=== PATIENT | male | born 1995 | race Caucasian/White ===

== ENCOUNTER 2017-05-21 18:47 | Emergency (ER) | payer MEDICAID ==
[~2017-05-21] VITALS: Ht 149.9 cm; Wt 67.5 kg
[2017-05-21 19:08] VITALS: Ht 149.9 cm; Wt 67.5 kg
[2017-05-21] MEDS ORDERED: ACETAMINOPHEN 500 MG TAB PO STA (20:37)
[2017-05-21] MEDS ORDERED: ONDANSETRON (ODT) 4 MG TAB ODT STA (20:37)
[2017-05-21 21:29] VITALS: TEMP 99.4
[2017-05-21] MEDS ORDERED: TYL500 PO (22:40)
[2017-05-21] MEDS ORDERED: IBUP-1542 PO (22:41)
[2017-05-21] MEDS ORDERED: ONDA-43 PO (22:41)
--- NOTE | 2017-05-21 23:05 | ERD ---
ER Documentation Chief Complaint Date/Time DATE: 05/21/17 TIME: 23:02 Chief Complaint fever, body ache, n/v x 3 days HPI This is a 30-year-old male presents to the ER with fever, body aches, sore throat, headache, nausea, nonbilious nonbloody vomiting. Patient denies any diarrhea. He denies any shortness of breath or chest pain. He denies a cough. Patient denies any sick contacts at home. ROS 12 point review of systems was done, all negative except per HPI. Medications Home Meds Active Scripts Ibuprofen* (Motrin*) 600 Mg Tab, 600 MG PO Q6, #30 TAB Prov:CLINTON WIGGINS 05/21/17 Ondansetron Hcl* (Zofran*) 4 Mg Tab, 4 MG PO Q4H Y for NAUSEA AND OR VOMITING for 3 Days, TAB Prov:CLINTON WIGGINS 05/21/17 Acetaminophen* (Tylenol*) 500 Mg Tab, 500 MG PO Q4H Y for MILD PAIN LEVEL 1-3 for 3 Days, TAB Prov:CLINTON WIGGINS 05/21/17 PMhx/Soc Medical and Surgical Hx: pt denies Medical Hx, pt denies Surgical Hx History of Surgery: No Anesthesia Reaction: No Hx Neurological Disorder: No Hx Respiratory Disorders: No Hx Cardiac Disorders: No Hx Psychiatric Problems: No Hx Miscellaneous Medical Probl: No Hx Alcohol Use: No Hx Substance Use: No Hx Tobacco Use: No Smoking Status: Never smoker Physical Exam Vitals Vital Signs Date Time Temp Pulse Resp B/P Pulse Ox O2 Delivery O2 Flow Rate FiO2 05/21/17 21:29 99.4 05/21/17 19:08 102.1 103 20 137/66 99 Physical Exam GENERAL: The patient is well-developed, well-nourished, in no acute distress. NECK: Cervical spine is non tender with no step off. Supple, no nuchal rigidity HEENT: Atraumatic. Pupils equal, round and reactive to light. Extraocular muscles are grossly intact. Conjunctivae pink, no discharge. Bilateral tympanic membranes are clear with no evidence of erythema, effusion or dulling of the light reflex. Tonsilar erythema with no exudates or uvular deviation. Clear rhinorrhea. RESPIRATORY: Clear to auscultation bilaterally. There are no rales, wheezes or rhonchi. HEART: Regular rate and rhythm. No murmurs, clicks, rubs or gallops. EXTREMITIES: No clubbing or cyanosis. Full range of motion. Grossly neurovascularly intact. NEUROLOGIC: Alert and oriented. Cranial nerves II through XII are intact. SKIN: There is no rash. The skin is warm and dry. Results 24 hrs Current Medications Medications (Trade) Dose Ordered Sig/Eric Route PRN Reason Start Time Stop Time Status Last Admin Dose Admin Acetaminophen (Tylenol Tab) 1,000 mg ONCE STAT PO 05/21/17 20:37 05/21/17 20:39 DC 05/21/17 20:47 Ondansetron HCl (Zofran Odt) 4 mg ONCE STAT ODT 05/21/17 20:37 05/21/17 20:39 DC 05/21/17 20:47 Procedures/MDM Differential diagnosis includes but is not limited to; Viral URI, allergic rhinitis, bronchitis, pertussis,pneumonia. Patient has influenza-like symptoms , he will be treated symptomatically. At this time suspicion for acute abdomen is low, patient did not complain of any abdominal pain. Suspicion for meningitis or sepsis is low as patient does not have any neck pain or stiffness , he does not have any meningeal signs. Suspicion for strep pharyngitis is less there is no tonsillar exudates uvular deviation or kissing tonsils. Clinical suspicion for pneumonia is low as patient appears well, is not hypoxic or in any respiratory distress. Additionally, patients physical examination is benign. Plan was discussed with patient they understand and agree. Patient needs to follow up with PCP in 1-2 days or return to ER sooner if symptoms worsen. Departure Diagnosis: Primary Impression: Influenza-like symptoms Condition: Stable Patient Instructions: Nausea and Vomiting-Adult Additional Instructions: Call your primary care doctor TOMORROW for an appointment during the next 1-2 days.See the doctor sooner or return here if your condition worsens before your appointment time. CLINTON WIGGINS May 21, 2017 23:04
== END 2017-05-21 22:49 | disposition home or self-care (01) ==
LOC: FTE 18:47
DX: R50.9 Fever, unspecified (principal); J02.9 Acute pharyngitis, unspecified; R51 Headache; R11.2 Nausea with vomiting, unspecified
CPT/HCPCS: 87400; Z7502; Z7610; 99283